=== PATIENT | male | born 1985 | race Caucasian/White ===

== ENCOUNTER 2020-01-01 22:49 | Emergency (ER) | payer SELFPAY ==
[~2020-01-01] VITALS: Ht 172.7 cm; Wt 90.7 kg
[2020-01-01 22:53] VITALS: BP 116/64
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
[2020-01-01 23:01] VITALS: BP 116/64
--- NOTE | 2020-01-01 23:31 | NUR ---
PATIENT EXAMINED BY DR. SHAVER. PATIENT MEDICALLY CLEARED AND RELEASED IN CUSTODY IN STABLE CONDITION. ORIGINAL PRE-BOOK FORM GIVEN TO OFFICER NEY, #[id number].
== END 2020-01-01 23:31 ==
LOC: MED 22:49
DX: Z04.1 Encounter for examination and observation following transport accident (principal)
CPT/HCPCS: 99283